=== PATIENT | female | born 1960 | race American Indian/Alaskan Native ===

== ENCOUNTER 2018-01-27 10:36 | Day surgery (SDC) | payer OTHER ==
[~2018-01-27 10:36] MED LIST: NACL 0.9% 1000 ML 1,000 ML IV SCH
[2018-01-27] MEDS ORDERED: HumuLIN R IV ONE (12:00)
--- NOTE | 2018-01-27 12:05 | Anesthesia Day of Surgery ---
Anesthesia Day of Surgery - Day of Surgery Patient Examined: Yes Patient H&P Reviewed: Yes Patient is NPO: Yes
--- NOTE | 2018-01-27 12:06 | Anesthesia Consultation ---
Anesthesia Consult and Med Hx Date of service: 01/27/18 - Airway Anesthetic Teeth Evaluation: Poor, Dentures, Edentulous ROM Head & Neck: Adequate Mental/Hyoid Distance: Adequate Mallampati Class: Class III Intubation Access Assessment: Possibly Difficult - Pulmonary Exam CTA: Yes - Cardiac Exam Cardiac Exam: RRR - Pre-Operative Health Status ASA Pre-Surgery Classification: ASA3 Proposed Anesthetic Plan: General, IV Sedation - Central Nervous System Hx Back Pain: Yes
[2018-01-27] MEDS ORDERED: HumuLIN R ONE (12:15)
[2018-01-27] MEDS ORDERED: DIPRIVAN 10 MG/ML IV ONE (13:29)
[2018-01-27] MEDS ORDERED: WATER FOR IRRIG STERILE IR ONE (13:33)
[2018-01-27 14:12] VITALS: BP 129/73
--- NOTE | 2018-01-27 14:49 | Operative Report ---
Operative Report Operative Report: Date of procedure: 01/27/2018 Procedure: Colonoscopy with multiple Hot Biopsy polypectomies. Attending physician: Danny Seaman MD Gluing Pressman: Danny Seaman MD Indication: Patient is a 57-year-old female who presents for screening colonoscopy.A colonoscopy serves to evaluate patient for colorectal cancer screening. Consent: Informed consent was obtained after advising the patient and family regarding nature of this procedure, its indications, potential benefits as well as possible complications including but not limited to bleeding perforation and adverse reaction to medication, infection as well as other cardiopulmonary complications. An informed written and verbal consent was then obtained after due opportunity was provided for questions and answers. Monitoring: Patient was monitored continuously with pulse oximetry and electrocardiographic recordings as well as blood pressure recordings. Vital signs remained stable throughout this procedure with no untoward events. Preoperative assessment: Patient was assessed immediately prior to this procedure for capacity to tolerate monitored anesthesia care and moderate sedation as well as general anesthesia. Patient's ASA classification is 2, Mallampati class is 2, Hyomental distance is 3. Instrument: ZAPITANOn video colonoscope Medications: Propofol given intravenously in divided doses. For details please refer to anesthesia records. Description of procedure: Patient was placed in the left lateral decubitus position after achieving sedation, a digital rectal examination was performed following which the colonoscope was introduced into the anal verge and advanced to the cecum which was identified by the cecal valve, the appendiceal orifice, as well as by the cecal strap and direct transillumination. The colonoscope was subsequently withdrawn with careful inspection of all mucosal surfaces. Patient tolerated this procedure well and was subsequently taken to the recovery room. The following findings were noted. Findings: The preparation was poor. The patient had retained stool, in various sections of the colon including the cecum which made the visualization suboptimal. In the sigmoid colon, patient had 3 flat polyps measuring between 5-7 mm. These polypswere removed by hot biopsy polypectomy and retrieved completely. On the retroflexed view of the anal verge, patient had internal hemorrhoids. Impression: Multiple flat sigmoid colon polyps status post hot biopsy polypectomy. Retained stool. Internal hemorrhoids. Plan: Follow-up pathology report High-fiber diet Repeat colonoscopy in 1 year, given the suboptimal colonoscopic preparation with Maurilio colonoscopic prep and retained stool.
--- NOTE | 2018-01-27 14:49 | Discharge Summary ---
Short Stay Discharge Plan Activity: advance as tolerated Weight Bearing Status: Weight Bear as Tolerated Diet: regular Additional Instructions: Post Sedation D/C Instructions When you return home you may resume your regular diet unless otherwise directed. -Go directly home from the hospital and rest quietly. You may resume normal activities tomorrow. -Do NOT drive, return to work, operate any machinery or make any important personal or business decisions today. -Do NOT drink any alcohol or take nerve or sleeping drugs. They add to the effects of the medicine still present in your body. Follow up with: TENZIN BROWN MD [Primary Care Provider] - 7 Days
[2019-01-27] MEDS ORDERED: XYLOCAINE MPF 2% ONE (13:00)
== END 2018-01-27 10:37 | disposition home or self-care (01) ==
LOC: GIO 10:36
PROVIDERS: ATTEND Internal Medicine Gastroenterology
DX: Z12.11 Encounter for screening for malignant neoplasm of colon (principal); K63.5 Polyp of colon; K64.8 Other hemorrhoids; K59.00 Constipation, unspecified; Z88.0 Allergy status to penicillin; Z79.899 Other long term (current) drug therapy
CPT/HCPCS: 45384; 82962; 88305; J2704; J7030; J1815